=== PATIENT | male | born 1985 | race African-American/Black ===

== ENCOUNTER 2017-08-15 19:10 | Emergency (ER) | payer MEDICARE, OTHER ==
[~2017-08-15 19:10] MED LIST: Sodium Chloride 0.9% 1,000 ML BAG ONE
[2017-08-19 09:22] LABS: Clarity Clear (Clear); Glucose, Urine (Dipstick) Negative (Negative); Leukocyte Negative (Negative); Nitrite Negative (Negative); Protein, Urine (Dipstick) Negative (Neg-Trace); Specific Gravity, Urine 1.015 (1.005-1.030)
[2017-08-19 09:23] LABS: Bilirubin Negative (Negative); Blood, Urine Negative (Negative); Urobilinogen 0.2 mg/dL (0.2-1.0)
[2017-08-19 09:28] LABS: Amphetamine Not Detected (NotDetected); Barbiturates Screen Not Detected (NotDetected); Benzodiazepine Screen Not Detected (NotDetected); Cocaine Metabolite Screen Not Detected (NotDetected); Medtox Control Line Valid? VALID (VALID); Methadone Not Detected (NotDetected); Methamphetamine Not Detected (NotDetected); Opiate Screen Detected (NotDetected); Oxycodone Screen Not Detected (NotDetected); Phencyclidine (PCP) Not Detected (NotDetected); THC/Cannabinoid Screen Detected (NotDetected); Tricyclic Screen Not Detected (NotDetected)
[2017-08-19 09:32] LABS: Hemoglobin 12.1 g/dL (14.0-18.0); Lymphocytes 37 % (21-51); Mean Corpuscular HGB CONC 32.2 g/dL (32.0-36.0); Mean Corpuscular Hemoglobin 28.8 pg (27.0-31.0); Mean Corpuscular Volume 89.5 fL (80.0-94.0); Mean Platelet Volume 6.6 fL (7.4-10.4); Monocytes 7 % (0-10); Platelet Count 399 thou/uL (130-400); RBC Distribution Width 16.9 % (11.5-14.5); Reactive Lymphocytes 1 % (0-10); Red Blood Cell (RBC) Count 4.21 mill/uL (4.70-6.10); White Blood Cell (WBC) Count 9.6 thou/uL (4.8-10.8)
[2017-08-19 09:33] LABS: Anisocytosis MODERATE=16-30 cells (100X) (0-5/hpf); Nucleated RBC 3 % (0); Polychromasia SLIGHT = 2-3 cells (100X) (0-2/hpf); Sickle Cells SLIGHT = 1-5 cells (100X) (None Seen); Spherocytes SLIGHT = 1-5 cells (100X) (None Seen); Target Cells MARKED = >16 cells (100X) (0-1/hpf)
[2017-08-19 09:34] LABS: PLT Morphology Comment Appears Adequate
[2017-08-19 09:35] LABS: Neutrophil 55 % (42-75)
[2017-08-19 09:36] LABS: ALT (SGPT) 15 U/L (8-55); AST (SGOT) 22 U/L (5-34); Albumin 4.7 g/dL (3.5-5.0); Alcohol Less than 10 mg/dL (Less than 10); Alkaline Phosphatase 75 U/L (40-150); Anion Gap 17 mmol/L (10-20); BUN (Urea Nitrogen) 5 mg/dL (8.9-20.6); Bilirubin, Total 1.2 mg/dL (0.2-1.2); Calc. Creatinine Clearance 0 mL/min (70-130); Calcium 10.3 mg/dL (7.8-10.44); Carbon Dioxide 24 mmol/L (22-29); Chloride 106 mmol/L (98-107); Estimated GFR-MDRD Greater than 90; Globulin 4.2 g/dL (2.4-3.5); Glucose 86 mg/dL (70-105); Potassium 3.9 mmol/L (3.5-5.1); Protein, Total 8.9 g/dL (6.0-8.3); Sodium 143 mmol/L (136-145)
[2017-08-19 09:37] LABS: Lactic Acid 0.7 mmol/L (0.5-2.2)
== END 2017-08-15 20:45 | disposition home or self-care (01) ==
LOC: NAV ERS 19:10
DX: D57.1 Sickle-cell disease without crisis (principal); R19.7 Diarrhea, unspecified
CPT/HCPCS: 36415; 80053; 80306; 80307; 81003; 83605; 85025; 85046; 99283; J2270; J2405; J7050

== ENCOUNTER 2018-04-10 16:37 | Emergency (ER) | payer MEDICARE, MEDICAID ==
[2018-04-10] MEDS ORDERED: diphenhydrAMINE 50 MG/ML VIAL ONE (17:08)
[2018-04-10] MEDS ORDERED: Acetaminophen 500 MG TAB ONE (17:08)
[2018-04-10 17:58] LABS: ALT (SGPT) 9 U/L (8-55); AST (SGOT) 22 U/L (5-34); Albumin 4.7 g/dL (3.5-5.0); Alkaline Phosphatase 67 U/L (40-150); Anion Gap 18 mmol/L (10-20); BUN (Urea Nitrogen) 6 mg/dL (8.9-20.6); Bilirubin, Total 1.2 mg/dL (0.2-1.2); Calc. Creatinine Clearance 0 mL/min (70-130); Calcium 10.4 mg/dL (7.8-10.44); Carbon Dioxide 21 mmol/L (22-29); Chloride 107 mmol/L (98-107); Estimated GFR-MDRD Greater than 90; Globulin 3.9 g/dL (2.4-3.5); Glucose 94 mg/dL (70-105); Potassium 3.8 mmol/L (3.5-5.1); Protein, Total 8.6 g/dL (6.0-8.3); Sodium 142 mmol/L (136-145)
[2018-04-10 18:01] LABS: #Basophils 0.1 thou/uL (0.0-0.2); #Lymphocytes 2.5 thou/uL (1.20-3.40); #Monocytes 0.8 thou/uL (0.11-0.59); #Neutrophils 3.6 thou/uL (1.40-6.50); %Basophils 0.8 % (0.0-1.0); %Eosinophils 0.3 % (0.0-10.0); %Lymphocytes 35.2 % (21.0-51.0); %Monocytes 11.7 % (0.0-10.0); Hemoglobin 12.1 g/dL (14.0-18.0); Mean Corpuscular HGB CONC 33.1 g/dL (32.0-36.0); Mean Corpuscular Hemoglobin 28.7 pg (27.0-31.0); Mean Corpuscular Volume 86.7 fL (78.0-98.0); Mean Platelet Volume 6.3 fL (7.4-10.4); Platelet Count 459 thou/uL (130-400); RBC Distribution Width 15.1 % (11.5-14.5); Red Blood Cell (RBC) Count 4.21 mill/uL (4.70-6.10)
[2018-04-10 21:56] LABS: Reticulocyte Count 2.4 % (0.5-1.5)
== END 2018-04-10 17:54 | disposition home or self-care (01) ==
LOC: NAV ERS 16:37
DX: D57.00 Hb-SS disease with crisis, unspecified (principal); F17.210 Nicotine dependence, cigarettes, uncomplicated
CPT/HCPCS: 80053; 85025; 85046; 96374; J1200

== ENCOUNTER 2019-02-11 16:49 | Emergency (ER) | payer MEDICARE, OTHER ==
[2019-02-11] MEDS ORDERED: HYDROcodone/Acetaminophen 10/325 mg Tablet ONE (17:52)
[2019-02-11 18:35] LABS: Anion Gap 17 mmol/L (10-20); BUN (Urea Nitrogen) 9 mg/dL (8.9-20.6); Calc. Creatinine Clearance 0 mL/min (70-130); Calcium 10.2 mg/dL (7.8-10.44); Carbon Dioxide 23 mmol/L (22-29); Chloride 102 mmol/L (98-107); Estimated GFR-MDRD Greater than 90; Glucose 82 mg/dL (70-105); Sodium 138 mmol/L (136-145)
[2019-02-11 18:36] LABS: Bilirubin Negative (Negative); Blood, Urine Negative (Negative); Glucose, Urine (Dipstick) Negative (Negative); Leukocyte Moderate (Negative); Nitrite Negative (Negative); Protein, Urine (Dipstick) Negative (Neg-Trace); Urobilinogen 0.2 mg/dL (0.2-1.0)
[2019-02-11 18:43] LABS: Anisocytosis MODERATE=16-30 cells (100X) (0-5/hpf); Eosinophils 1 % (0-10); Hemoglobin 11.6 g/dL (14.0-18.0); Lymphocytes 24 % (21-51); MDiff Complete? YES; Mean Corpuscular HGB CONC 33.9 g/dL (32.0-36.0); Mean Corpuscular Hemoglobin 30.2 pg (27.0-31.0); Mean Corpuscular Volume 88.9 fL (78.0-98.0); Monocytes 12 % (0-10); Neutrophil 63 % (42-75); Platelet Count 360 thou/uL (130-400); Polychromasia SLIGHT = 2-3 cells (100X) (0-2/hpf); Red Blood Cell (RBC) Count 3.86 mill/uL (4.70-6.10); Spherocytes SLIGHT = 1-5 cells (100X) (None Seen); Target Cells MARKED = >16 cells (100X) (0-1/hpf); Tear Drops SLIGHT = 2-5 cells (100X) (0-1/hpf); White Blood Cell (WBC) Count 9.3 thou/uL (4.8-10.8)
[2019-02-11 18:45] LABS: Clarity SL HAZY (Clear)
[2019-02-11 18:47] LABS: Squamous Epithelial 0-3 HPF (0-3)
[2019-02-11 21:20] LABS: Reticulocyte Count 3.3 % (0.5-1.5)
== END 2019-02-11 19:15 | disposition home or self-care (01) ==
LOC: NAV ERS 16:49
DX: M25.522 Pain in left elbow (principal); F17.210 Nicotine dependence, cigarettes, uncomplicated
CPT/HCPCS: 80048; 81003; 81015; 85025; 85046; 87086; 99283

== ENCOUNTER 2019-02-13 14:06 | Emergency (ER) | payer MEDICARE, OTHER | END 2019-02-13 15:35 | disposition home or self-care (01) | LOC: NAV ERS 14:06 | DX: M25.522 Pain in left elbow (principal); D57.20 Sickle-cell/Hb-C disease without crisis; F17.210 Nicotine dependence, cigarettes, uncomplicated; Z79.899 Other long term (current) drug therapy | CPT/HCPCS: 99283 ==

== ENCOUNTER 2019-02-18 13:11 | Emergency (ER) | payer MEDICARE, OTHER ==
[2019-02-18] MEDS ORDERED: HYDROcodone/Acetaminophen 5/325 mg Tablet ONE ×2 (14:12→15:35)
[2019-02-18] MEDS ORDERED: Ondansetron PF 4 MG/2 ML Vial ONE (14:13)
[2019-02-18] MEDS ORDERED: diphenhydrAMINE 25 MG CAP ONE (14:23)
[2019-02-18 14:24] LABS: ALT (SGPT) 13 U/L (8-55); AST (SGOT) 19 U/L (5-34); Albumin 4.5 g/dL (3.5-5.0); Alkaline Phosphatase 73 U/L (40-150); Anion Gap 15 mmol/L (10-20); BUN (Urea Nitrogen) 7 mg/dL (8.9-20.6); Bilirubin, Total 0.9 mg/dL (0.2-1.2); Calc. Creatinine Clearance 0 mL/min (70-130); Carbon Dioxide 24 mmol/L (22-29); Chloride 105 mmol/L (98-107); Estimated GFR-MDRD Greater than 90; Globulin 3.7 g/dL (2.4-3.5); Glucose 82 mg/dL (70-105); Potassium 4.4 mmol/L (3.5-5.1); Protein, Total 8.2 g/dL (6.0-8.3); Sodium 140 mmol/L (136-145)
--- NOTE | 2019-02-18 14:28 | RAD ---
PORTABLE CHEST 1 VIEW: DATE: 02/18/2019. TIME: 1:50 p.m. HISTORY: Chest pain. FINDINGS: Comparison is made with the exam of 02/08/2019. The heart size is normal. The lungs are expanded without lobar consolidation or pneumothoraces or pl eural effusions. IMPRESSION: No acute process. POS: OFF
[2019-02-18 14:30] LABS: Hemoglobin 11.8 g/dL (14.0-18.0); Mean Corpuscular HGB CONC 35.2 g/dL (32.0-36.0); Mean Corpuscular Hemoglobin 30.4 pg (27.0-31.0); Mean Corpuscular Volume 86.6 fL (78.0-98.0); Mean Platelet Volume 5.5 fL (7.4-10.4); Platelet Count 581 thou/uL (130-400); RBC Distribution Width 14.7 % (11.5-14.5); Red Blood Cell (RBC) Count 3.86 mill/uL (4.70-6.10); White Blood Cell (WBC) Count 21.9 thou/uL (4.8-10.8)
[2019-02-18 14:39] LABS: Eosinophils 1 % (0-10); Hypochromia SLIGHT = 6-15 cells (100X) (0-5/hpf); Large Platelets SLIGHT; Lymphocytes 38 % (21-51); MDiff Complete? YES; Monocytes 10 % (0-10); Neutrophil 51 % (42-75); Platelet Morphology Comment Appears Increased; Poikilocytosis SLIGHT = 6-15 cells (100X) (0-5/hpf); Target Cells SLIGHT = 2-5 cells (100X) (0-1/hpf)
[2019-02-18] MEDS ORDERED: Sodium Chloride 0.9% 1,000 ML ONE (14:53)
[2019-02-18 15:01] LABS: Bilirubin Negative (Negative); Blood, Urine Negative (Negative); Clarity Clear (Clear); Glucose, Urine (Dipstick) Negative (Negative); Leukocyte Negative (Negative); Nitrite Negative (Negative); Protein, Urine (Dipstick) Negative (Neg-Trace); Specific Gravity, Urine 1.015 (1.005-1.030); Urobilinogen 0.2 mg/dL (0.2-1.0)
[2019-02-18 15:10] LABS: Amphetamine Not Detected (NotDetected); Barbiturates Screen Not Detected (NotDetected); Benzodiazepine Screen Not Detected (NotDetected); Cocaine Metabolite Screen Not Detected (NotDetected); Medtox Control Line Valid? VALID (VALID); Methadone Not Detected (NotDetected); Methamphetamine Not Detected (NotDetected); Opiate Screen Not Detected (NotDetected); Oxycodone Screen Not Detected (NotDetected); Phencyclidine (PCP) Not Detected (NotDetected); THC/Cannabinoid Screen Detected (NotDetected); Tricyclic Screen Not Detected (NotDetected)
[2019-02-18] MEDS ORDERED: Piperacillin/Tazobactam 3.375 GM VIAL ONE (16:05)
== END 2019-02-18 16:54 | disposition short-term general hospital (02) ==
LOC: NAV ERS 13:11
DX: A41.9 Sepsis, unspecified organism (principal); R07.9 Chest pain, unspecified; F17.210 Nicotine dependence, cigarettes, uncomplicated
CPT/HCPCS: 36415; 71045; 80053; 80306; 81003; 83605; 85025; 85046; 87040; 87804; 93005; 96361; 96365; 96375; J2405; J2543; J7050; Q0163